=== PATIENT | female | born 1955 | race Caucasian/White ===

== ENCOUNTER 2020-07-06 09:50 | Outpatient (CLI) | payer BC, SELFPAY ==
--- NOTE | ~2020-07-06 | MM_ITS ---
EXAMINATION: MM screening [facility] BI w mark HISTORY: Screening TECHNIQUE: Craniocaudal and mediolateral oblique 3-D tomosynthesis images were obtained and synthetic 2-D images were generated. CAD analysis was submitted and interpreted. COMPARISON: Comparison to multiple prior studies sequentially, with oldest reviewed study dated 04/28. BREAST PARENCHYMAL COMPOSITION: There are scattered areas of fibroglandular density. FINDINGS: There is no evidence of suspicious mass, calcification, or architectural distortion to sugg est malignancy in either breast. There has been no suspicious interval change. IMPRESSION: 1. No mammographic evidence of malignancy. 2. Recommend routine screening mammography in one year. BI-RADS Category 1: Negative Reviewed, dictated and finalized at location A. RENTAL SERVICE ATTENDANT
--- NOTE | ~2020-07-06 | DEXA_ITS ---
Bone Density Report Name: Zara Sawant Age: 64 Sex: Female Ethnicity: White Date of : 1955 Indication: postmenopausal; hysterectomy; Referring Provider: PHYSICIAN NOT ON STAFF Study: Bone densitometry was performed. Exam Date: July 06, 2020 Accession number: [id number] Bone Density: Region BMD T-score Z-score Classification AP Spine (L2, L4) 1.155 0.7 2.4 Normal Femoral Neck (Left) 0.861 0.1 1.5 Normal Total Hip (Left) 1.182 2.0 3.1 Normal Total Hip Bilateral Avg 1.158 1.8 2.9 Normal Femoral Neck (Right) 1.074 2.0 3.4 Normal Total Hip (Right) 1.132 1.6 2.7 Normal World Health Organization criteria for BMD impression classify patients as: Normal (T-score at or above -1.0), Osteopenia (T-score between -1.0 and -2.5), or Osteoporosis (T-score at or below -2.5). 10-year Fracture Risk: FRAX not reported because: All T-scores for Spine Total, Hip Total, Femoral Neck at or above -1.0 Clinical Information Provided by Patient: Has used the following medications: HRT (i.e. estrogen/hormone therapy), Vitamin D Has the following medical conditions: Hysterectomy Patient maximum height was 60 Menopause Age: 52 No regular weight bearing exercise Drinks caffeinated beverages Onset of menses at age 14 Number of children 3 Impression: The patient has normal bone mass. Discussion: BONE DENSITY IS ABOVE THE MINIMUM DESIRABLE LEVEL AT ALL SKELETAL SITES TESTED. This patient?s bone mineral density is above the minimum desirable level (T-score -1.0 or better) at all sites measured. The patient should follow a healthful lifestyle (good nutrition with adequate calcium and vitamin D, and appropriate weight-bearing exercise). Follow-Up: Consider repeating this study in 5 years or sooner if there is some new clinical indication. Reported by: ARJUN on 07/06/2020 10:22:00 AM. Reviewed, dictated and finalized at location AKamran ARMAS
== END 2020-07-06 09:51 | disposition home or self-care (01) ==
LOC: ANHIMG 09:58
DX: Z12.31 Encounter for screening mammogram for malignant neoplasm of breast (principal); Z78.0 Asymptomatic menopausal state
CPT/HCPCS: 77063; 77067; 77080

== ENCOUNTER 2021-09-06 15:07 | Outpatient (CLI) | payer BC, SELFPAY ==
--- NOTE | ~2021-09-06 | MM_ITS ---
EXAMINATION: MM screening [facility] BI w mark HISTORY: Screening mammogram TECHNIQUE: Craniocaudal and mediolateral oblique 3-D tomosynthesis images were obtained and synthetic 2-D images were generated. CAD analysis was submitted and interpreted. COMPARISON: 07/06/2020, 08/11/2018, 08/06/2017 BREAST PARENCHYMAL COMPOSITION: There are scattered areas of fibroglandular density. FINDINGS: There is no evidence of suspicious mass, calcification, or architectural distortion to sugg est malignancy in either breast. There has been no suspicious interval change. IMPRESSION: 1. No mammographic evidence of malignancy. 2. Recommend routine screening mammography in one year. BI-RADS Category 1: Negative Reviewed, dictated and finalized at location A. MOTIVE MECHANIC
== END 2021-09-06 15:08 | disposition home or self-care (01) ==
LOC: ANHIMG 15:21
DX: Z12.31 Encounter for screening mammogram for malignant neoplasm of breast (principal)
CPT/HCPCS: 77063; 77067

== ENCOUNTER 2022-12-17 15:16 | Outpatient (CLI) | payer BC, SELFPAY ==
--- NOTE | ~2022-12-17 | MM_ITS ---
EXAMINATION: MM screening [facility] BI w mark HISTORY: Screening mammogram, family history of breast cancer in her mother. TECHNIQUE: Craniocaudal and mediolateral oblique 3-D tomosynthesis images were obtained and synthetic 2-D images were generated. CAD analysis was submitted and interpreted. COMPARISON: 09/06/2021, 07/06/2020, 08/11/2018 BREAST PARENCHYMAL COMPOSITION: There are scattered areas of fibroglandular density. FINDINGS: No suspicious mass, calcification, or architectural distortion are identified in either luis ast to suggest malignancy. There has been no suspicious interval change. IMPRESSION: 1. No mammographic evidence of malignancy. 2. Recommend routine screening mammography in one year. BI-RADS Category 1: Negative Reviewed, dictated and finalized at location A.
== END 2022-12-17 15:17 | disposition home or self-care (01) ==
LOC: ANHIMG 15:21
DX: Z12.31 Encounter for screening mammogram for malignant neoplasm of breast (principal)
CPT/HCPCS: 77063; 77067

== ENCOUNTER 2024-02-17 12:17 | Outpatient (CLI) | payer OTHER, SELFPAY ==
--- NOTE | ~2024-02-17 | MMUS_ITS ---
EXAMINATION: MM diagnostic evelio BI w mark, US breast RT limited HISTORY: Cyst for 5 years located in the cleavage soft tissues between the breasts. Pain. TECHNIQUE: Additional 3-D tomosynthesis images of the breasts were performed and synthetic 2-D images were generated. CAD analysis was submitted and interpreted. High resolution Limited right breast ult rasound was performed. COMPARISON: Comparison to multiple prior studies sequentially, with oldest reviewed study dated 08/2022. BREAST PARENCHYMAL COMPOSITION: Not dense: There are scattered areas of fibroglandular density. FINDINGS: MAMMOGRAPHIC FINDINGS: There is a mass between the breasts and the cleavage location, partially visualized medial to the rig ht breast. Technologist indicated that Green puss was expressed during compression for MLO view. No o ther suspicious masses, calcifications or architectural distortion. ULTRASOUND: Limited ultrasound overlying the sternum in the area of palpable concern between the breast there is an oval complicated fluid collection measuring 2.4 x 1.9 x 1.1 cm, suspicious for abscess given the c linical history. IMPRESSION: 1. Complicated fluid collection located between the breasts overlying the sternum with green pus expr essed during the examination. 2. Ultrasound-guided drainage recommended. Recommend follow-up ultrasound in 3-6 months after appropr iate treatment. BI-RADS CATEGORY 3-PROBABLY BENIGN FINDING Reviewed, dictated and finalized at location B. IMPRESSION: 1. Complicated fluid collection located between the breasts overlying the wu um with green pus expressed during the examination. 2. Ultrasound-guided drainage recommended. Recommend follow-up ultrasound in 3- 6 months after appropriate treatment. BI-RADS CATEGORY 3-PROBABLY BENIGN FINDING
== END 2024-02-17 12:18 | disposition home or self-care (01) ==
DX: N60.01 Solitary cyst of right breast (principal); N60.02 Solitary cyst of left breast; N64.4 Mastodynia
CPT/HCPCS: 76642; 77062; 77066; G0279

== ENCOUNTER 2025-01-25 13:13 | Emergency (ER) | payer OTHER, SELFPAY ==
--- NOTE | 2025-01-25 13:16 | ED_ITS ---
HPI - URI/Sore Throat General Chief Complaint: Upper Respiratory Infection Stated Complaint: Strep Symptoms Source: patient and RN notes reviewed Mode of arrival: ambulatory Limitations: no limitations History of Present Illness HPI Narrative: Patient is a 69-year-old female who presents to the [facility] with complaints of sore throat since . Patient states that the sore throat continues to worsen in severity. She denies known fever. Denies recent congestion or cough. Unsure of any known sick contacts. Related Data Home Medications ?Medication ?Instructions ?Recorded ?Confirmed ?Last Taken ?Type Lexapro 01/25/25 Unknown History Micardis 01/25/25 Unknown History Mounjaro 01/25/25 Unknown History bupropion HCl 01/25/25 Unknown History escitalopram oxalate 01/25/25 Unknown History estradiol 01/25/25 Unknown History evolocumab 01/25/25 Unknown History tramadol 01/25/25 Unknown History Allergies Allergy/AdvReac Type Severity Reaction Status Date / Time statins Allergy Mild Muscle Pain Uncoded 01/25/25 13:24 Review of Systems Review of Systems: CONSTITUTIONAL: Denies fever, chills, or sweats. EYES: Denies visual changes, redness, or discharge. ENT: Denies otalgia but reports sore throat. CARDIOVASCULAR: Denies chest pain, palpitations, or edema. RESPIRATORY: Denies cough or dyspnea. GASTROINTESTINAL: Denies abdominal pain, nausea, vomiting, or diarrhea. GENITOURINARY: Denies dysuria or hematuria. SKIN: Denies rash or itching. MUSCULOSKELETAL: Denies back pain, joint pain, or myalgia. NEUROLOGIC: Denies headache, numbness, or weakness. Pertinent positives per HPI. PMFSH Comments At the time of my signature, I reviewed and agree with the nursing past medical, surgical, social, and family history. There is no relevant family history pertinent to the patient complaint. Exam Narrative: GENERAL: This is a well-nourished, well-developed patient, in no apparent distress. HEAD: normocephalic, atraumatic. EYES: Sclera clear/white. Vision is grossly intact. EARS: External ears normal. Hearing grossly intact. NOSE: External nose normal with no obvious nasal discharge, nares without redness, no rhinorrhea. THROAT: Mucous membranes moist. Oropharyngeal erythema with exudate. NECK: Neck supple, non-tender without lymphadenopathy, masses or thyromegaly. CARDIOVASCULAR: Regular rate and rhythm without murmurs, gallops, or rubs. RESPIRATORY: Clear to auscultation. Breath sounds equal bilaterally. No wheezes, rales, or rhonchi. GASTROINTESTINAL: Abdomen soft, non-tender, nondistended. Bowel sounds are active. No hepato-splenomegaly, or palpable masses. No guarding. SKIN: warm, intact with no suspicious lesions or rash, good texture and turgor. NEURO: awake, alert, and oriented to person, place and time. There were no obvious focal neurologic abnormalities. Course Course Level of Care: Express Care Visit Vital Signs Vital signs: Reviewed MDM - URI/Sore Throat MDM Narrative Medical decision making narrative: After 24 hours on antibiotics throw tooth brush away and start using a new one. Increase your Vitamin C. Do not share drinks. Take Motrin alternating with Tylenol for pain and/or fever alternating every 4 hours. Increase fluids, avoid caffeine. Take a probiotic daily or eat a low sugar yogurt while taking the antibiotic. Follow up with Primary provider if not getting better this week Differential Diagnosis Differential diagnosis: Likely upper respiratory infection, viral infection, pharyngitis and other (strep) Lab Data Attestation: I reviewed the patient's lab results. Labs: Lab Results 01/25/25 01/25/25 Range/Units 13:17 13:21 POC Grp A Strep Screen Negative Negative (Negative) Critical Care Time Critical Care Time Critical Care Time: No Discharge Plan Discharge Clinical Impression: Acute bacterial pharyngitis Patient Disposition: Home Condition: Stable Instructions: Antibiotic Form, Pharyngitis (ED) Additional Instructions: After 24 hours on antibiotics throw tooth brush away and start using a new one. Increase your Vitamin C. Do not share drinks. Take Motrin alternating with Tylenol for pain and/or fever alternating every 4 hours. Increase fluids, avoid caffeine. Take a probiotic daily or eat a low sugar yogurt while taking the antibiotic. Follow up with Primary provider if not getting better this week Patient Language: Moldovan Prescriptions: New amoxicillin 500 mg capsule 500 mg PO Q12H 10 Days Qty: 20 0RF No Action Micardis bupropion HCl Lexapro escitalopram oxalate tramadol Mounjaro estradiol evolocumab Follow-up/Referrals: PHYSICIAN,PILE DRIVER OPERATOR [facility] [facility] [Primary Care Provider] - Time of Disposition: 13:38
[2025-01-25 13:17] VITALS: BP 130/80; PULSE 80; RESP 16; TEMP 36.3; O2SAT 99
[2025-01-25 13:27] LABS: EDSTREPNEGPOS1 Negative (Negative)
[2025-01-25 13:31] LABS: EDSTREPNEGPOS1 Negative (Negative)
== END 2025-01-25 13:46 | disposition home or self-care (01) ==
PROVIDERS: Emergency Provider Nurse Practitioner
DX: J02.9 Acute pharyngitis, unspecified (principal); I10 Essential (primary) hypertension; E11.9 Type 2 diabetes mellitus without complications; E78.00 Pure hypercholesterolemia, unspecified
CPT/HCPCS: 87081; 87880; 99213; G0463